=== PATIENT | male | born 1990 | race Caucasian/White ===

== ENCOUNTER 2024-02-28 08:38 | Outpatient (CLI) | payer OTHER, SELFPAY | END 2024-02-28 08:39 | disposition home or self-care (01) | PROVIDERS: Visit Provider Family Medicine | DX: Z00.00 Encounter for general adult medical examination without abnormal findings (principal); R19.5 Other fecal abnormalities; F41.9 Anxiety disorder, unspecified; R53.83 Other fatigue; Z76.89 Persons encountering health services in other specified circumstances | CPT/HCPCS: 80053; 80061; 84443; 86364; 87045; 87046; 87147; 87177; 87209; 87427; 87493; 87505 ==

== ENCOUNTER 2025-06-14 10:45 | Outpatient (CLI) | payer OTHER, SELFPAY ==
--- NOTE | 2025-06-14 10:45 | CRLHL7_ITS ---
For Patients: As a result of the Century Cures Act, medical imaging exams and procedure reports are released immediately into your electronic medical record. You may view this report before your referring provider. If you have questions, please contact your health care provider. INDICATION: Vasectomy Status. COMPARISON: none TECHNIQUE: Lenz scale imaging was performed of the scrotum. In addition color Doppler and spectral Doppler analysis was performed of the testes. FINDINGS: The testes demonstrate normal arterial and venous blood flow on color Doppler and spectral Doppler analysis. The testes have uniform echogenicity with no evidence of a suspicious mass or area of inflammation. The right testis measures 5.4 x 2.3 x 3.7 cm in size and the left testis measures 3.5 x 1.9 x 3.7 cm. Right epididymis appendix measures 3 x 2 x 4 millimeters. Scrotal cyst measures 9 x 2 x 5 millimeters. Left epididymal head cyst measures 6 x 4 x 6 millimeters. There is no evidence of a hydrocele or varicocele. IMPRESSION: Normal testicles. Dictated by Juanjose Cortes MD @ 06/14/2025 5:56:59 PM (Electronically Signed)
== END 2025-06-14 10:46 | disposition home or self-care (01) ==
PROVIDERS: Visit Provider Surgery
DX: Z98.52 Vasectomy status (principal); N50.89 Other specified disorders of the male genital organs; Z12.71 Encounter for screening for malignant neoplasm of testis
CPT/HCPCS: 76870; 93976